=== PATIENT | female | born 1990 | race Caucasian/White ===

== ENCOUNTER 2016-08-03 10:12 | Inpatient (IN) | payer OTHER ==
[~2016-08-03] VITALS: Ht 162.6 cm; Wt 78.8 kg
[~2016-08-03 10:12] MED LIST: ACAM0.05 PO; BACT800T5 PO; TRAZ300T2 PO; WELLTAB39 PO; XANA1TAB6 PO; ZOFR4TAB3 PO
[2016-08-03 10:13] VITALS: BP 131/83; PULSE 125; RESP 14; TEMP 98.3; O2SAT 99
[2016-08-03] MEDS ORDERED: PERP4TAB8 PO (11:42)
[2016-08-03] MEDS ORDERED: QUET1TAB8 PO (11:42)
[2016-08-03] MEDS ORDERED: DIAZ10TA PO (11:42)
[2016-08-03] MEDS ORDERED: QUET5TAB PO (11:42)
[2016-08-03] MEDS ORDERED: ZOLP10TA3 PO (11:42)
[2016-08-03] MEDS ORDERED: DULO1CAP3 PO (11:42)
[2016-08-03] MEDS ORDERED: TRAZ100T4 PO (11:42)
[2016-08-03] MEDS ORDERED: ALPR1TAB3 PO (11:42)
--- NOTE | 2016-08-03 11:53 | PD ---
HPI Chief Complaint: Psychiatric Symptoms Time Seen by Provider: 11:44 Travel History International Travel<30 days: No Contact w/Intl Traveler<30days: No Traveled to known affect area: No History of Present Illness HPI 25-year-old female came to the emergency room with history of major depression and suicidal ideations. Patient came in voluntarily. She has extensive psychiatric disorder history. Patient says she has been feeling like this for past week to 10 days. She took all her Xanax over past one week which were total of 120 pills with an intention to kill herself. She finished those pills 2 days ago. She mentioned this to her psychiatrist who asked her to come to the emergency room says she would require inpatient psych admission. Patient has history of suicidal gestures in the past. Currently she does not look to be in any significant distress. She is awake and answering questions appropriately. Her vital signs were stable. She continues to have active suicidal thoughts. [facility] Past Medical History Narrative Medical List of her past medical history as reviewed from the nursing note. Asthma: Yes Bipolar Disorder: Yes Anxiety: Yes Depression: Yes Cancer: Yes (SKIN CA) High Cholesterol: Yes Diminished Hearing: No Psychiatric: Yes (PANIC ATTACKS) Schizophrenia: Yes ?: Not LMP: IUD Miscarriage: 1 Past Surgical History Ear Surgery: Yes Other Surgery: Yes (TWO RIGHT FOOT PLANTAR FASC , TUNNEL RELEASE AND ANKLE RECONST. ) Social History Alcohol Use: Yes (OCC) Tobacco Use: No Substance Use: Yes (MARIJUANA) Allergies-Medications (Allergen,Severity, Reaction): Coded Allergies: Abilify (Verified Allergy, Severe, Anaphylaxis, 08/03/16) Geodon (Verified Allergy, Severe, Anaphylaxis, 08/03/16) Latuda (Verified Allergy, Severe, Anaphylaxis, 08/03/16) Phenergan (Verified Allergy, Severe, Anaphylaxis, 08/03/16) Comments List of allergies reviewed from the nursing note. Reported Meds & Prescriptions Reported Meds & Active Scripts Active Reported Zolpidem (Zolpidem Tartrate) 10 Mg Tab 10 Mg PO HS PRN Quetiapine (Quetiapine Fumarate) 100 Mg Tab 100 Mg PO HS Quetiapine (Quetiapine Fumarate) 50 Mg Tab 50 Mg PO DAILY Diazepam 10 Mg Tab 10 Mg PO QID Alprazolam 1 Mg Tab 1 Mg PO DAILY Duloxetine DR (Duloxetine HCl) 60 Mg Capdr 60 Mg PO BID Perphenazine 4 Mg Tab 4 Mg PO DAILY Trazodone (Trazodone HCl) 100 Mg Tab 2-3 Tab PO HS Narrative Medication List of her home medications reviewed from the nursing note. Review of Systems Except as stated in HPI: all other systems reviewed are Neg Physical Exam Narrative GENERAL: Awake, alert, no obvious distress SKIN: Warm and dry. HEAD: Atraumatic. Normocephalic. EYES: Pupils equal and round. No scleral icterus. No injection or drainage. ENT: No nasal bleeding or discharge. Mucous membranes pink and moist. NECK: Trachea midline. No JVD. CARDIOVASCULAR: Regular rate and rhythm. No murmur appreciated. RESPIRATORY: No accessory muscle use. Clear to auscultation. Breath sounds equal bilaterally. GASTROINTESTINAL: Abdomen soft, non-tender, nondistended. Hepatic and splenic margins not palpable. MUSCULOSKELETAL: No obvious deformities. No clubbing. No cyanosis. No edema. NEUROLOGICAL: Awake and alert. No obvious cranial nerve deficits. Motor grossly within normal limits. Normal speech. PSYCHIATRIC: Appropriate mood and affect; insight and judgment normal. Data Data Last Documented VS Vital Signs Date Time Temp Pulse Resp B/P Pulse Ox O2 Delivery O2 Flow Rate FiO2 08/03/16 22:00 91 18 136/84 98 Room Air 08/03/16 10:13 98.3 Orders Complete Blood Count With Diff (08/03/16 11:53) Comprehensive Metabolic Panel (08/03/16 11:53) Drug Screen, Random Urine (08/03/16 11:53) Ed Urine Pregnancytest Poc (08/03/16 11:53) Electrocardiogram (08/03/16 11:53) Alcohol (Ethanol) (08/03/16 11:53) Salicylates (Aspirin) (08/03/16 11:53) Tylenol (Acetaminophen) (08/03/16 11:53) Psych Screen (08/03/16 11:53) Diet Regular Basic (08/03/16 Dinner) Admit Order (Ed Use Only) (08/03/16 23:05) Admit To Inpatient Psych (08/03/16 ) Vital Signs (Adult) JENNIFER.Q12H.E (08/03/16 23:05) Activity Oob Ad Monica (08/03/16 23:05) Level Of Observation (Psych) (08/03/16 23:05) Diet Regular Basic (08/04/16 Breakfast) Complete Blood Count With Diff (08/04/16 06:00) Basic Metabolic Panel (Bmp) (08/04/16 06:00) Lipid Profile (08/04/16 06:00) Hemoglobin (Hgb) A1c (08/04/16 06:00) Labs Laboratory Tests Test 08/03/16 14:10 Sodium Level 137 MEQ/L Potassium Level 4.3 MEQ/L Chloride Level 104 MEQ/L Carbon Dioxide Level 25.0 MEQ/L Anion Gap 8 MEQ/L Blood Urea Nitrogen 9 MG/DL Creatinine 0.99 MG/DL Estimat Glomerular Filtration 68 ML/MIN Rate Random Glucose 82 MG/DL Calcium Level 9.3 MG/DL Total Bilirubin 0.7 MG/DL Aspartate Amino Transf 9 U/L (AST/SGOT) Alanine Aminotransferase 19 U/L (ALT/SGPT) Alkaline Phosphatase 53 U/L Total Protein 7.6 GM/DL Albumin 4.3 GM/DL Salicylates Level LESS THAN 1.7 MG/DL Urine Opiates Screen NEG Acetaminophen Level LESS THAN 2.0 MCG/ML Urine Barbiturates Screen NEG Urine Amphetamines Screen NEG Urine Benzodiazepines Screen POS Urine Cocaine Screen NEG Urine Cannabinoids Screen POS Ethyl Alcohol Level LESS THAN 3 MG/DL White Blood Count 12.0 TH/MM3 Red Blood Count 4.78 MIL/MM3 Hemoglobin 15.1 GM/DL Hematocrit 44.1 % Mean Corpuscular Volume 92.3 FL Mean Corpuscular Hemoglobin 31.6 PG Mean Corpuscular Hemoglobin 34.3 % Concent Red Cell Distribution Width 13.7 % Platelet Count 272 TH/MM3 Mean Platelet Volume 7.7 FL Neutrophils (%) (Auto) 74.7 % Lymphocytes (%) (Auto) 16.3 % Monocytes (%) (Auto) 5.8 % Eosinophils (%) (Auto) 2.7 % Basophils (%) (Auto) 0.5 % Neutrophils # (Auto) 9.0 TH/MM3 Lymphocytes # (Auto) 2.0 TH/MM3 Monocytes # (Auto) 0.7 TH/MM3 Eosinophils # (Auto) 0.3 TH/MM3 Basophils # (Auto) 0.1 TH/MM3 CBC Comment DIFF FINAL Differential Comment MDM Medical Decision Making Medical Screen Exam Complete: Yes Emergency Medical Condition: Yes Medical Record Reviewed: Yes Interpretation(s) Twelve-lead EKG was reviewed by me. Normal sinus rhythm, normal axis, nonspecific ST-T wave changes. Heart rate of 79 bpm. Differential Diagnosis Major depression, suicidal ideation Narrative Course 12:22 PM awaiting for the blood test results. Patient will require to be medically cleared in order to be admitted to psych. 12:59 PM since patient came to the ER voluntarily and I strongly feel that she should be admitted for her active suicidal thoughts I have filled a Coronado act paper work. 3:10 PM all the blood test results finally came back. Patient is medically cleared to go to psych. Angela Gomes MD Aug 03, 2016 11:53
[2016-08-03 14:25] VITALS: BP 125/78; PULSE 77; RESP 20; O2SAT 98
[2016-08-03 14:39] LABS: BASOPHIL # 0.1 TH/MM3 (0-0.2); BASOPHIL % 0.5 % (0.0-2.0); EOSINOPHIL # 0.3 TH/MM3 (0-0.4); EOSINOPHIL % 2.7 % (0.0-4.0); HEMATOCRIT 44.1 % (35.0-46.0); HEMO FLAGS DIFF FINAL; LYMPH % 16.3 % (9.0-44.0); MEAN CELL VOLUME 92.3 FL (80.0-100.0); MEAN CORPUSCULAR HEMOGLOBIN 31.6 PG (27.0-34.0); MEAN CORPUSCULAR HGB CONC 34.3 % (32.0-36.0); MONO % 5.8 % (0.0-8.0); NEUT % 74.7 % (16.0-70.0); PLATELET COUNT 272 TH/MM3 (150-450); RED BLOOD COUNT 4.78 MIL/MM3 (4.00-5.30); RED CELL DISTRIBUTION WIDTH 13.7 % (11.6-17.2)
[2016-08-03 14:56] LABS: ALT (GPT) 19 U/L (10-53); AMPHETAMINE, URINE NEG (NEG); ANION GAP 8 MEQ/L (5-15); AST (GOT) 9 U/L (15-37); BARBITURATES, URINE NEG (NEG); BLOOD UREA NITROGEN 9 MG/DL (7-18); CHLORIDE 104 MEQ/L (98-107); COCAINE, URINE NEG (NEG); GLOMERULAR FILTRATION RATE 68 ML/MIN (>89); POTASSIUM 4.3 MEQ/L (3.5-5.1); SODIUM (NA) 137 MEQ/L (136-145)
[2016-08-03 14:59] LABS: ACETAMINOPHEN LESS THAN 2.0 MCG/ML (10.0-30.0); ALKALINE PHOSPHATASE 53 U/L (45-117); TOTAL BILIRUBIN ADULT 0.7 MG/DL (0.2-1.0)
[2016-08-03 19:01] VITALS: BP 127/73; PULSE 88; RESP 18; O2SAT 97
[2016-08-03 22:00] VITALS: BP 136/84; PULSE 91; RESP 18; O2SAT 98
[2016-08-04] MEDS ORDERED: FLUMAZENIL 0.5 MG/5 ML VIAL IV PUSH PRN
[2016-08-04] MEDS ORDERED: LORazepam 2 MG/ML VIAL IV PUSH PRN ×4
[2016-08-04] MEDS ORDERED: LORazepam 2 MG TAB PO PRN
[2016-08-04 00:25] VITALS: BP 123/78; PULSE 79; RESP 18; TEMP 98.3; O2SAT 100
[2016-08-04] MEDS: LORazepam 1 MG TAB PO PRN ×4 (00:25→22:41)
[2016-08-04] MEDS: diphenhydrAMINE HCL 50 MG CAP PO PRN ×2 (00:25→22:41)
[2016-08-04 05:40] VITALS: BP 105/61; PULSE 73; RESP 18; TEMP 97.8; O2SAT 98
[2016-08-04 07:43] LABS: AUTOMATED NEUTROPHIL # 6.4 TH/MM3 (1.8-7.7); BASOPHIL # 0.1 TH/MM3 (0-0.2); BASOPHIL % 0.8 % (0.0-2.0); EOSINOPHIL # 0.4 TH/MM3 (0-0.4); EOSINOPHIL % 4.1 % (0.0-4.0); HEMATOCRIT 43.8 % (35.0-46.0); HEMO FLAGS DIFF FINAL; LYMPH % 24.2 % (9.0-44.0); LYMPHOCYTE # 2.4 TH/MM3 (1.0-4.8); MEAN CORPUSCULAR HEMOGLOBIN 31.8 PG (27.0-34.0); MEAN CORPUSCULAR HGB CONC 34.5 % (32.0-36.0); MONO % 6.5 % (0.0-8.0); NEUT % 64.4 % (16.0-70.0); PLATELET COUNT 260 TH/MM3 (150-450); RED BLOOD COUNT 4.76 MIL/MM3 (4.00-5.30); RED CELL DISTRIBUTION WIDTH 13.8 % (11.6-17.2)
[2016-08-04 08:05] LABS: ANION GAP 8 MEQ/L (5-15); BICARBONATE 27.7 MEQ/L (21.0-32.0); BLOOD UREA NITROGEN 10 MG/DL (7-18); CHLORIDE 103 MEQ/L (98-107); GLOMERULAR FILTRATION RATE 62 ML/MIN (>89); HDL CHOLESTEROL 55.4 MG/DL (40.0-60.0); LDL CHOLESTEROL 152 MG/DL (0-99); POTASSIUM 4.3 MEQ/L (3.5-5.1); SODIUM (NA) 139 MEQ/L (136-145)
[2016-08-04] MEDS: NICOTINE 21 MG/24 HR PATCH T-DERMAL SCH (08:42)
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
[2016-08-04] MEDS ORDERED: ACETAMINOPHEN 325 MG TAB PO PRN ×3 (11:30→23:45)
[2016-08-04] MEDS ORDERED: diphenhydrAMINE HCL 50 MG/ML VIAL - HS PRN IM (16:30)
[2016-08-04] MEDS ORDERED: MAGNESIUM HYDROXIDE SUSP 30 ML CUP PO PRN (16:30)
[2016-08-04] MEDS ORDERED: diphenhydrAMINE HCL 50 MG CAP - HS PRN PO (16:30)
[2016-08-04] MEDS ORDERED: ALUMINUM/MAGNESIUM/SIMETH 30 ML CUP PO PRN (16:30)
[2016-08-04] MEDS ORDERED: diphenhydrAMINE HCL 50 MG/ML VIAL IM PRN (16:30)
[2016-08-04] MEDS ORDERED: hydrOXYzine HCL 50 MG TAB PO PRN (16:30)
[2016-08-04 17:24] LABS: HEMOGLOBIN A1b 0.9 %; HEMOGLOBIN F 0.8 %; HEMOGLOBIN LA1C 1.8 %; HEMOGLOBIN P3 3.2 %
[2016-08-04 18:00] VITALS: BP 118/72; PULSE 110; RESP 17; TEMP 97.9; O2SAT 99
[2016-08-04] MEDS ORDERED: REMOVE OLD NICOTINE PATCH T-DERMAL SCH (21:00)
--- NOTE | 2016-08-04 22:50 | EKG ---
Date Performed: 08/03/2016 Time Performed: 14:19:48 PTAGE: 25 years EKG: Sinus rhythm WITH SINUS ARRHYTHMIA NORMAL ECG NO PREVIOUS TRACING DOCTOR: Israel Sun Interpretating Date/Time 08/04/2016 22:48:34
[2016-08-05 05:25] VITALS: BP 133/69; PULSE 90; RESP 16; TEMP 97.9
[2016-08-05] MEDS: NICOTINE 21 MG/24 HR PATCH T-DERMAL SCH (09:20)
--- NOTE | 2016-08-05 10:19 | HHI.DS ---
Psychiatry Discharge Summary Inpatient Psychiatric care?: Yes Advance Directive: No Reason Not Provided: not interested Mental Health AdvanceDirective: No Health Care Proxy: No Admission Admission Date Aug 03, 2016 at 23:08 Admission Diagnosis: (1) Bipolar affective disorder, depressed ICD Code: F31.30 (2) History of substance abuse ICD Code: Z87.898 GAF Score: 45 Brief History This is a 25-year-old white female who was admitted under the Coron[place] act initiated by a physician. Patient admitted to abusing Agustin and alcohol and pot. She also reported that she has not been taking care of herself she is looking for a job. She claimed that she has been diagnosed with bipolar affective disorder and seeing a psychiatrist as an outpatient was prescribing the medication and she is also diagnosed as having borderline personality disorder and PTSD. Yesterday she came because she ran out of the medication she took 120 pills in 2 days and her physician was afraid that she might going to some depressed withdrawal symptoms and asked her to go to the hospital. Patient claimed that she has some sweating nausea vomiting and upset stomach but denied any auditory or visual hallucinations. Patient denies any suicidal ideation intentions or plan but reportedly she to all her Xanax or the past one week which would total of 120 pills with an intent to kill herself along with alcohol she finished those pills few days ago before she came to the hospital she had a history of suicide attempt in the past. Patient claimed that she has been having problem with substance abuse ever since she was 18 hasn't been to any rehabilitation. Her fianc is field cane scaler helper and an alcoholic. Patient is willing to cooperate Tobacco Use In Past 30 Days: No Tobacco Past 30 Days Alcohol Use: 4 or More Times Per Week Hospital Course Patient was started on supportive treatment. Patient was reluctant to be in the hospital as she believes that she was not suicidal and she does not have been Coronado acted. She does realize that she has been abusing medication and willing to work as an outpatient with her physician. Denied any suicidal ideation intentions or plan no behavior or management problem reported. She was observed. She did participated in some of the therapeutic activity on the floor. Willing to follow-up as an outpatient and wanting to be discharged and she did not meet the Coronado act criteria so we'll lift the Coronado act and discharge the patient to be followed up as an outpatient Results Blood Pressure 133 / 69 Vital Signs Date Time Temp Pulse Resp B/P Pulse Ox O2 Delivery O2 Flow Rate FiO2 08/05/16 05:25 97.9 90 16 133/69 08/04/16 18:00 99 08/03/16 22:00 Room Air Laboratory Tests Test 08/03/16 08/04/16 14:10 07:20 Estimat Glomerular Filtration 68 ML/MIN (>89) 62 ML/MIN (>89) Rate Aspartate Amino Transf 9 U/L (15-37) (AST/SGOT) Salicylates Level LESS THAN 1.7 MG/DL (2.8-20.0) Acetaminophen Level LESS THAN 2.0 MCG/ML (10.0-30.0) Urine Benzodiazepines Screen POS (NEG) Urine Cannabinoids Screen POS (NEG) White Blood Count 12.0 TH/MM3 (4.0-11.0) Neutrophils (%) (Auto) 74.7 % (16.0-70.0) Neutrophils # (Auto) 9.0 TH/MM3 (1.8-7.7) Eosinophils (%) (Auto) 4.1 % (0.0-4.0) Creatinine 1.07 MG/DL (0.50-1.00) Triglycerides Level 167 MG/DL (42-150) Cholesterol Level 241 MG/DL (120-200) LDL Cholesterol 152 MG/DL (0-99) Laboratory Results Test 08/04/16 07:20 Hemoglobin A1c 4.7 % (4.3-6.0) Triglycerides Level 167 MG/DL (42-150) Cholesterol Level 241 MG/DL (120-200) LDL Cholesterol 152 MG/DL (0-99) HDL Cholesterol 55.4 MG/DL (40.0-60.0) Summary of Major Lab Results Nothing significant Summary of Procedures None Imaging None Pending results at discharge: No Medications # of Antipsychotic meds at D/C: 0 Appropriate >1 Antipsych meds?: 2 Approp Antipsych med options 1 - Minimum of three failed multiple trials of monotherapy. Discharge Discharge Date: Aug 05, 2016 Discharge Diagnosis: (1) Bipolar affective disorder, depressed Diagnosis: Principal ICD Code: F31.30 (2) History of substance abuse Diagnosis: Principal ICD Code: Z87.898 Mental Status Exam at Disch Patient was alert guarded 3 cooperative casually dressed her speech was clear spontaneous without any evidence of loose associations or flights of ideas or pressure speech her mood was described as feeling fine and was willing to follow -up with her physician and take the medication. Patient denied any suicidal ideation intentions or plan. Denied any auditory or visual hallucinations. Feels hopeful about the future and get some help Pt Condition on Discharge: Stable Discharge Disposition: Discharge Home Discharge Instructions Diet Instructions: As Tolerated, No Restrictions Activities you can perform: Regular-No Restrictions Scheduled Appointment: Private Psychiatrist Discharge Time <= 30 minutes Discharge/Advance Care Plan Health Problems: (1) Bipolar affective disorder, depressed (2) History of substance abuse Goals to promote your health * To prevent worsening of your condition and complications * To maintain your health at the optimal level Directions to meet your goals Take your medications as prescribed Follow your dietary instruction Follow activity as directed Keep your appointments as scheduled Take your immunizations and boosters as scheduled If your symptoms worsen call your PCP, if no PCP go to Urgent Care Center or Emergency Room For 17/01 questions related to your inpatient stay or results of tests pending at discharge, please contact Dr. Frank Prado at Smoking is Dangerous to Your Health. Avoid second hand smoking Problem Qualifiers (1) Bipolar affective disorder, depressed: Qualified Code: F31.32 - Bipolar affective disorder, currently depressed, moderate Frank Prado MD Aug 05, 2016 10:19
== END 2016-08-05 15:40 | disposition home or self-care (01) | DRG 885 ==
LOC: NEPB 10:12 → NEDA 23:08 → H260 23:44
PROVIDERS: ADMIT Psychiatry & Neurology Psychiatry; ATTEND Psychiatry & Neurology Psychiatry
DX: F31.30 Bipolar disorder, current episode depressed, mild or moderate severity, unspecified (principal); F60.3 Borderline personality disorder; F43.10 Post-traumatic stress disorder, unspecified; J45.909 Unspecified asthma, uncomplicated; Z81.1 Family history of alcohol abuse and dependence; Z91.5 Personal history of self-harm; Z88.8 Allergy status to other drugs, medicaments and biological substances; Z87.898 Personal history of other specified conditions
CPT/HCPCS: 80048; 80053; 80061; 80307; 80320; 80329; 83036; 84703; 85025; 93005; G0480; Q0163

== ENCOUNTER 2016-10-01 18:57 | Emergency (ER) | payer OTHER ==
[~2016-10-01] VITALS: Ht 165.1 cm; Wt 75.0 kg
[~2016-10-01 18:57] MED LIST changes: -ACAM0.05 PO; +ALPR1TAB3 PO; -BACT800T5 PO; +DIAZ10TA PO; +DULO1CAP3 PO; +PERP4TAB8 PO; +QUET1TAB8 PO; +QUET5TAB PO; +TRAZ100T4 PO; -TRAZ300T2 PO; -WELLTAB39 PO; -XANA1TAB6 PO; -ZOFR4TAB3 PO; +ZOLP10TA3 PO
[2016-10-01 19:10] VITALS: BP 129/79; PULSE 92; RESP 16; TEMP 98.5; TEMP 99.3; O2SAT 97
[2016-10-01] MEDS ORDERED: SODIUM CHLORIDE 0.9% FLUSH 10 ML FLUSH IVF PRN (19:15)
[2016-10-01 19:25] VITALS: RESP 16; O2SAT 98
--- NOTE | 2016-10-01 19:30 | PD ---
HPI Chief Complaint: Chest Pain Time Seen by Provider: 19:30 Travel History International Travel<30 days: No Contact w/Intl Traveler<30days: No Traveled to known affect area: No History of Present Illness HPI 25-year-old female presents to the emergency department via EMS with complaint of chest pain and shortness of breath that started last night. She was at work today and started experiencing the chest pain or shortness of breath and heart palpitations. Became lightheaded and dizzy and almost fainted. She was seen at [place] urgent care and was sent here for evaluation because of tachycardia on EKG. Reports chest pain as left-sided and across the top of her chest. Feels like a pressure like something is sitting on her chest. Shortness of breath is worse with activity. Chest pain is reproducible with deep breathing and movement. Denies heavy lifting or injury. Denies radiation of chest pain. Denies history of DVT or PE. Denies hemoptysis, recent travel, surgery, trauma. Was given Zofran in the ambulance for nausea. Denies vomiting. Reports recent illness of flulike symptoms but has felt better over the past 2 days. Has history of anxiety and takes Ativan as needed; last taken one week ago. She was recently treated with tramadol for the past 3 weeks for a wrist injury and stopped taking it 2 days ago and was told that she is possibly going through withdrawals. Patient has an IUD and her last normal menstrual period was 2 years ago. History of childhood asthma and bipolar disorder. Primary care provider is Dr. Etienne. Allergies to Abilify, Geodon , Latuda, Phenergan. No other modifying factors or associated signs and symptoms. PFSH Past Medical History ADD: Yes (OCD) Asthma: Yes Bipolar Disorder: Yes Anxiety: Yes Depression: Yes Cancer: Yes (SKIN CA) High Cholesterol: Yes COPD: No Diminished Hearing: No Headaches: No Psychiatric: Yes (Hx of Bipolar DO, PTSD, OCD per pt) Respiratory: Yes Migraines: Yes Schizophrenia: Yes Tetanus Vaccination: < 5 Years Influenza Vaccination: Yes ?: Unknown LMP: UNK-IUD Miscarriage: 1 Past Surgical History Abdominal Surgery: No Cardiac Surgery: No Ear Surgery: Yes Endocrine Surgery: No Eye Surgery: No Genitourinary Surgery: No Gynecologic Surgery: No Oral Surgery: No Thoracic Surgery: No Other Surgery: Yes (TWO RIGHT FOOT PLANTAR FASC , TUNNEL RELEASE AND ANKLE RECONST. ) Social History Alcohol Use: Yes (OCC) Tobacco Use: No Substance Use: No Allergies-Medications (Allergen,Severity, Reaction): Coded Allergies: Abilify (Verified Allergy, Severe, Anaphylaxis, 10/01/16) Geodon (Verified Allergy, Severe, Anaphylaxis, 10/01/16) Latuda (Verified Allergy, Severe, Anaphylaxis, 10/01/16) Phenergan (Verified Allergy, Severe, Anaphylaxis, 10/01/16) Reported Meds & Prescriptions Reported Meds & Active Scripts Active Ibuprofen 800 Mg Tab 800 Mg PO Q6HR PRN Reported Ativan (Lorazepam) 1 Mg Tab 1 Mg PO DAILY PRN Quetiapine (Quetiapine Fumarate) 300 Mg Tab 300 Mg PO HS Duloxetine DR (Duloxetine HCl) 60 Mg Capdr 120 Mg PO AC BREAKFAST Trazodone (Trazodone HCl) 100 Mg Tab 2-3 Tab PO HS Review of Systems Except as stated in HPI: all other systems reviewed are Neg Physical Exam Narrative GENERAL: Well-nourished, well-developed female patient, in no acute distress SKIN: Warm and dry. HEAD: Atraumatic. Normocephalic. EYES: Pupils equal and round. No scleral icterus. No injection or drainage. ENT: Mucosa pink and moist. NECK: Trachea midline. CHEST: Reproducible left and bilateral upper chest wall tenderness; no crepitance or deformity. No retractions or use of accessory muscles. CARDIOVASCULAR: Regular rate and rhythm. No murmur appreciated. RESPIRATORY: No accessory muscle use. Clear to auscultation. Breath sounds equal bilaterally. GASTROINTESTINAL: Abdomen soft, non-tender, nondistended. Hepatic and splenic margins not palpable. Bowel sounds are active 4 quadrants. MUSCULOSKELETAL: No obvious deformities. No clubbing. No cyanosis. No edema. NEUROLOGICAL: Awake and alert. Oriented 3. No obvious cranial nerve deficits. Motor grossly within normal limits. Normal speech. Moves all extremities. 5/5 strength to all extremities. PSYCHIATRIC: Appropriate mood and affect; insight and judgment normal. Data Data Last Documented VS Vital Signs Date Time Temp Pulse Resp B/P Pulse Ox O2 Delivery O2 Flow Rate FiO2 10/01/16 21:31 98.7 87 16 126/74 99 10/01/16 20:57 Room Air Orders Electrocardiogram (10/01/16 19:14) Basic Metabolic Panel (Bmp) (10/01/16 19:14) Ckmb (Isoenzyme) Profile (10/01/16 19:14) Complete Blood Count With Diff (10/01/16 19:14) D-Dimer (10/01/16 19:14) Magnesium (Mg) (10/01/16 19:14) Prothrombin Time / Inr (Pt) (10/01/16 19:14) Act Partial Throm Time (Ptt) (10/01/16 19:14) Troponin I (10/01/16 19:14) Chest, Single Ap (10/01/16 19:14) Ecg Monitoring (10/01/16 19:14) Iv Access Insert/Monitor (10/01/16 19:14) Oximetry (10/01/16 19:14) Sodium Chloride 0.9% Flush (Ns Flush) (10/01/16 19:15) Beta Hcg (Quant/Titer) (10/01/16 19:21) Influenzae A/B Antigen (10/01/16 19:29) Sodium Chlor 0.9% 1000 Ml Inj (Ns 1000 M (10/01/16 19:45) Ketorolac Inj (Toradol Inj) (10/01/16 20:00) Labs Laboratory Tests Test 10/01/16 19:40 White Blood Count 13.3 TH/MM3 Red Blood Count 4.12 MIL/MM3 Hemoglobin 12.7 GM/DL Hematocrit 36.2 % Mean Corpuscular Volume 87.9 FL Mean Corpuscular Hemoglobin 30.8 PG Mean Corpuscular Hemoglobin 35.0 % Concent Red Cell Distribution Width 13.3 % Platelet Count 322 TH/MM3 Mean Platelet Volume 8.3 FL Neutrophils (%) (Auto) % Lymphocytes (%) (Auto) % Monocytes (%) (Auto) % Eosinophils (%) (Auto) % Basophils (%) (Auto) % Neutrophils # (Auto) TH/MM3 Lymphocytes # (Auto) TH/MM3 Monocytes # (Auto) TH/MM3 Eosinophils # (Auto) TH/MM3 Basophils # (Auto) TH/MM3 CBC Comment AUTO DIFF Differential Total Cells 100 Counted Neutrophils % (Manual) 79 % Lymphocytes % 16 % Monocytes % 5 % Neutrophils # (Manual) 10.5 TH/MM3 Differential Comment FINAL DIFF MANUAL Platelet Estimate NORMAL Platelet Morphology Comment NORMAL Red Cell Morphology Comment NORMAL Prothrombin Time 12.0 SEC Prothromb Time International 1.1 RATIO Ratio Activated Partial 25.9 SEC Thromboplast Time D-Dimer Quantitative (PE/DVT) 0.20 MG/L FEU Sodium Level 141 MEQ/L Potassium Level 3.7 MEQ/L Chloride Level 107 MEQ/L Carbon Dioxide Level 22.3 MEQ/L Anion Gap 12 MEQ/L Blood Urea Nitrogen 7 MG/DL Creatinine 1.06 MG/DL Estimat Glomerular Filtration 63 ML/MIN Rate Random Glucose 74 MG/DL Calcium Level 9.3 MG/DL Magnesium Level 2.1 MG/DL Total Creatine Kinase 72 U/L Troponin I LESS THAN 0.02 NG/ML Human Chorionic Gonadotropin, LESS THAN 1 Quant MIU/ML MDM Medical Decision Making Medical Screen Exam Complete: Yes Emergency Medical Condition: Yes Medical Record Reviewed: Yes Differential Diagnosis Chest wall pain, musculoskeletal pain, costochondritis, PE, SD, ACS Narrative Course 25-year-old female with chest pain and shortness of breath. She arrived via EMS from [place] urgent [facility] after an EKG confirmed tachycardia. She has history of anxiety. Stopped taking tramadol 2 days ago and was told she was could be going through withdrawals. Patient placed on cardiopulmonary monitor. Labs, cardiac enzymes, beta hCG, coags ordered. Chest x-ray and EKG ordered. Influenza ordered. Toradol ordered. 1934: EKG was sinus tachycardia; without ST elevation or depression. 2022: Influenza negative. Slight leukocytosis of 13.3 otherwise CBC is unremarkable. BMP unremarkable. Troponin less than 0.2. D-dimer 0.20. 2099: Chest x-ray with no acute findings. Discussed results and findings with the patient. I discussed the patient's Risk of MACE of 0.9-1.7%. Patient feels comfortable going home. Ibuprofen prescribed for home. Instructed patient to follow up with primary care provider. Patient verbalizes understanding and agreement with treatment plan. Patient is medically cleared and stable for discharge. Discussed reasons to return to the emergency department. Patient agrees with treatment plan. The patients vital signs are stable and the patient is stable for outpatient follow-up and treatment. Patient discharged home, stable and in no acute distress. Diagnosis Primary Impression: Chest wall pain Referrals: Primary Care Physician Patient Instructions: Chest Pain (ED), Chest Wall Pain (ED), General Instructions Departure Forms: Tests/Procedures, Work Release Enter return to work date: Oct 02, 2016 Additional Instructions: Ibuprofen or Tylenol as directed and as needed to reduce pain Heating pad and/or ice to affected area to reduce pain Avoid aggravating activities; increase activity as tolerated Gentle stretching to the affected muscle may be helpful Follow-up with a primary care provider Return to the emergency department immediately with worsening of symptoms Med/Other Pt SpecificInfo: Prescription(s) given Scripts Ibuprofen 800 Mg [id number] Mg PO Q6HR PRN (PAIN) #30 TAB Ref 0 Prov:Kristy De La O 10/01/16 Disposition: 01 DISCHARGE HOME Condition: Stable Kristy De La O Oct 01, 2016 19:30
[2016-10-01] MEDS ORDERED: DULO1CAP3 PO (19:31)
[2016-10-01] MEDS ORDERED: LORA-474 PO (19:31)
[2016-10-01] MEDS ORDERED: QUET1TAB10 PO (19:31)
[2016-10-01] MEDS ORDERED: SODIUM CHLOR 0.9% 1000 ML INJ 1,000 ML IV ONE (19:45)
--- NOTE | 2016-10-01 19:56 | RADRPT ---
EXAM DATE/TIME: 10/01/2016 19:29 [facility] COMPARISON: No previous studies available for comparison. INDICATIONS : Left sided chest pain and syncope. MEDICAL HISTORY : None. SURGICAL HISTORY : None. ENCOUNTER: Initial ACUITY: 1 day PAIN SCORE: 8/10 LOCATION: Left lower chest FINDINGS: A single view of the chest demonstrates the lungs to be symmetrically aerated without evidence of mas s, infiltrate or effusion. The cardiomediastinal contours are unremarkable. Osseous structures are intact. CONCLUSION: Normal examination. Oscar Manning MD on October 01, 2016 at 19:54 Board Certified Radiologist. This report was verified electronically.
[2016-10-01] MEDS ORDERED: KETOROLAC TROMETHAMINE 30 MG/ML (IVP) VIAL IV PUSH ONE (20:00)
[2016-10-01 20:09] LABS: HEMATOCRIT 36.2 % (35.0-46.0); MEAN CELL VOLUME 87.9 FL (80.0-100.0); MEAN CORPUSCULAR HEMOGLOBIN 30.8 PG (27.0-34.0); PLATELET COUNT 322 TH/MM3 (150-450); RED BLOOD COUNT 4.12 MIL/MM3 (4.00-5.30); RED CELL DISTRIBUTION WIDTH 13.3 % (11.6-17.2); WHITE BLOOD COUNT 13.3 TH/MM3 (4.0-11.0)
[2016-10-01 20:12] LABS: HEMO FLAGS AUTO DIFF
[2016-10-01 20:15] LABS: APTT (PATIENT) 25.9 SEC (24.3-30.1); INTERNATIONAL NORMALIZED RATIO 1.1 RATIO
[2016-10-01 20:20] LABS: ANION GAP 12 MEQ/L (5-15); BICARBONATE 22.3 MEQ/L (21.0-32.0); BLOOD UREA NITROGEN 7 MG/DL (7-18); CHLORIDE 107 MEQ/L (98-107); GLOMERULAR FILTRATION RATE 63 ML/MIN (>89); MAGNESIUM 2.1 MG/DL (1.5-2.5); POTASSIUM 3.7 MEQ/L (3.5-5.1); SODIUM (NA) 141 MEQ/L (136-145)
[2016-10-01 20:27] LABS: BETA HCG QUANT LESS THAN 1 MIU/ML (0-5)
[2016-10-01 20:37] LABS: NEUTROPHIL # MANUAL DIFF 10.5 TH/MM3 (1.8-7.7); POLYS (SEG NEUTROPHILS) 79 % (16-70); WBC DIFF SAMPLE 100
[2016-10-01 20:38] LABS: PLATELET ESTIMATE SMEAR NORMAL (NORMAL); PLATELET MORPHOLOGY NORMAL (NORMAL); SCAN/DIFF FINAL DIFF MANUAL
[2016-10-01 20:39] LABS: CREATINE KINASE 72 U/L (26-192)
[2016-10-01 20:57] VITALS: BP 124/79; PULSE 81; RESP 16; O2SAT 99
[2016-10-01] MEDS ORDERED: IBUP800T23 PO (21:05)
[2016-10-01 21:31] VITALS: BP 126/74; TEMP 98.7
--- NOTE | 2016-10-02 14:31 | EKG ---
Date Performed: 10/01/2016 Time Performed: 19:33:15 PTAGE: 25 years EKG: SINUS TACHYCARDIA Compared to prior tracing no significant change ABNORMAL RHYTHM ECG PREVIOUS TRACING : 08/03/2016 14.19 DOCTOR: Verito Funes Interpretating Date/Time 10/02/2016 14:30:58
== END 2016-10-01 21:32 | disposition home or self-care (01) ==
LOC: NEPD 18:57
DX: R07.89 Other chest pain (principal); R06.02 Shortness of breath; R00.2 Palpitations; R42 Dizziness and giddiness; R00.0 Tachycardia, unspecified; R11.0 Nausea; E78.00 Pure hypercholesterolemia, unspecified; Z85.828 Personal history of other malignant neoplasm of skin; Z87.09 Personal history of other diseases of the respiratory system; Z86.69 Personal history of other diseases of the nervous system and sense organs; Z86.59 Personal history of other mental and behavioral disorders
CPT/HCPCS: 71010; 80048; 82550; 83735; 84484; 84702; 85007; 85027; 85379; 85610; 85730; 87804; 93005; 96361; 96374; 99285; J1885; J7030

== ENCOUNTER 2017-08-14 23:23 | Inpatient (IN) | payer OTHER ==
[~2017-08-14] VITALS: Ht 167.6 cm; Wt 75.0 kg
[~2017-08-14 23:23] MED LIST changes: -ALPR1TAB3 PO; +AMBI10TA PO; +BUSP15TA PO; -DIAZ10TA PO; -DULO1CAP3 PO; +LORA0.5T PO; +MELO7.5T27 PO; -PERP4TAB8 PO; -QUET1TAB8 PO; -QUET5TAB PO; -TRAZ100T4 PO; -ZOLP10TA3 PO
[2017-08-14 23:25] VITALS: BP 110/80; PULSE 86; RESP 16; TEMP 98.1; O2SAT 98
[2017-08-14] MEDS ORDERED: SODIUM CHLOR 0.9% 1000 ML INJ 1,000 ML IV ONE (23:31)
[2017-08-14 23:34] VITALS: RESP 16; O2SAT 98
--- NOTE | 2017-08-14 23:44 | PD ---
HPI . Overdose Chief Complaint: OD/ Ingestion Time Seen by Provider: 23:28 Travel History International Travel<30 days: No Contact w/Intl Traveler<30days: No Traveled to known affect area: No History of Present Illness HPI This patient is brought to us by [facility] with chief complaint of an intentional overdose. The overdose reportedly occurred approximately 11 PM. She reportedly took 20 5 mg clonidine tablets (? 0.5 mg or clonazepam) and 4 10 mg Ambien tablets in a suicidal attempt. She has also cut her right wrist. EMS was called by her fianc. She reportedly has a history of a previous suicide attempt. The patient is unable to give me any further history as to why she might have done this tonight. PFSH Past Medical History ADD: Yes (OCD) Asthma: Yes Bipolar Disorder: Yes Anxiety: Yes Depression: Yes Cancer: Yes (SKIN CA) High Cholesterol: Yes COPD: No Diminished Hearing: No Headaches: No Psychiatric: Yes (Hx of Bipolar DO, PTSD, OCD per pt) Respiratory: Yes Migraines: Yes Schizophrenia: Yes Tetanus Vaccination: Unknown Influenza Vaccination: No ?: Not LMP: LAST WEEK Miscarriage: 1 Past Surgical History Abdominal Surgery: No Cardiac Surgery: No Ear Surgery: Yes Endocrine Surgery: No Eye Surgery: No Genitourinary Surgery: No Gynecologic Surgery: No Oral Surgery: No Thoracic Surgery: No Other Surgery: Yes (TWO RIGHT FOOT PLANTAR FASC , TUNNEL RELEASE AND ANKLE RECONST. ) Social History Alcohol Use: Yes (OCC) Tobacco Use: No Substance Use: No Allergies-Medications (Allergen,Severity, Reaction): Coded Allergies: aripiprazole (Unverified Allergy, Severe, Anaphylaxis, 08/14/17) lurasidone (Unverified Allergy, Severe, Anaphylaxis, 08/14/17) promethazine (Unverified Allergy, Severe, Anaphylaxis, 08/14/17) ziprasidone (Unverified Allergy, Severe, Anaphylaxis, 08/14/17) Reported Meds & Prescriptions Reported Meds & Active Scripts Active Meloxicam 7.5 Mg Tab 7.5 Mg PO DAILY Lorazepam 0.5 Mg Tab 0.5 Mg PO Q6H PRN Ambien (Zolpidem Tartrate) 10 Mg Tab 10 Mg PO HS PRN Buspirone (Buspirone HCl) 15 Mg Tab 15 Mg PO TID Review of Systems Except as stated in HPI: all other systems reviewed are Neg HENT: No: Headaches Cardiovascular: No: Chest Pain or Discomfort Respiratory: No: Shortness of Breath Gastrointestinal: No: Nausea, Vomiting, Diarrhea, Abdominal Pain Physical Exam Narrative GENERAL: Patient is awake and alert. She has slurred speech. SKIN: warm/dry. Superficial abrasions on the right wrist. HEAD: Normocephalic. Atraumatic. EYES: Pupils equal and round. No scleral icterus. No injection or drainage. ENT: No nasal bleeding or discharge. Mucous membranes pink and moist. NECK: Trachea midline. Full range of motion without pain.. CARDIOVASCULAR: Regular rate and rhythm. Heart sounds normal. RESPIRATORY: No accessory muscle use. Clear to auscultation. Breath sounds equal bilaterally. GASTROINTESTINAL: Abdomen soft. Nontender. Bowel sounds present. Nondistended. MUSCULOSKELETAL: No obvious deformities. NEUROLOGICAL: Awake and alert. No obvious cranial nerve deficits. Motor grossly within normal limits. Normal speech. PSYCHIATRIC: Suicidal ideation. Alcohol intoxication. Data Data Last Documented VS Vital Signs Date Time Temp Pulse Resp B/P (MAP) Pulse Ox O2 Delivery O2 Flow Rate FiO2 08/14/17 23:34 16 98 Nasal Cannula 2.00 08/14/17 23:29 80 08/14/17 23:25 98.1 110/80 (90) Orders Orders Beta Hcg (Quant/Titer) (08/14/17 23:31) Complete Blood Count With Diff (08/14/17 23:31) Comprehensive Metabolic Panel (08/14/17 23:31) Iv Access Insert/Monitor (08/14/17 23:31) Cath For Specimen (08/14/17 23:31) Ecg Monitoring (08/14/17 23:31) Oximetry (08/14/17 23:31) Psych Screen (08/14/17 23:31) Sodium Chloride 0.9% Flush (Ns Flush) (08/14/17 23:45) Sodium Chlor 0.9% 1000 Ml Inj (Ns 1000 M (08/14/17 23:31) Call Poison Control (08/14/17 23:31) Drug Screen, Random Urine (08/14/17 23:31) Alcohol (Ethanol) (08/14/17 23:31) Salicylates (Aspirin) (08/14/17 23:31) Tylenol (Acetaminophen) (08/14/17 23:31) Tylenol (Acetaminophen) (08/15/17 02:36) Labs Laboratory Tests Test 08/14/17 23:40 08/15/17 02:45 White Blood Count 8.7 TH/MM3 Red Blood Count 4.19 MIL/MM3 Hemoglobin 13.0 GM/DL Hematocrit 37.6 % Mean Corpuscular Volume 89.7 FL Mean Corpuscular Hemoglobin 31.1 PG Mean Corpuscular Hemoglobin Concent 34.7 % Red Cell Distribution Width 14.1 % Platelet Count 209 TH/MM3 Mean Platelet Volume 8.1 FL Neutrophils (%) (Auto) 52.8 % Lymphocytes (%) (Auto) 32.6 % Monocytes (%) (Auto) 6.6 % Eosinophils (%) (Auto) 7.1 % Basophils (%) (Auto) 0.9 % Neutrophils # (Auto) 4.6 TH/MM3 Lymphocytes # (Auto) 2.8 TH/MM3 Monocytes # (Auto) 0.6 TH/MM3 Eosinophils # (Auto) 0.6 TH/MM3 Basophils # (Auto) 0.1 TH/MM3 CBC Comment DIFF FINAL Differential Comment Blood Urea Nitrogen 9 MG/DL Creatinine 0.78 MG/DL Random Glucose 81 MG/DL Total Protein 6.3 GM/DL Albumin 3.5 GM/DL Calcium Level 7.8 MG/DL Alkaline Phosphatase 36 U/L Aspartate Amino Transf (AST/SGOT) 29 U/L Alanine Aminotransferase (ALT/SGPT) 17 U/L Total Bilirubin 0.2 MG/DL Sodium Level 140 MEQ/L Potassium Level 4.2 MEQ/L Chloride Level 109 MEQ/L Carbon Dioxide Level 22.5 MEQ/L Anion Gap 9 MEQ/L Estimat Glomerular Filtration Rate 89 ML/MIN Human Chorionic Gonadotropin, Quant LESS THAN 1 MIU/ML Salicylates Level LESS THAN 1.7 MG/DL Urine Opiates Screen NEG Acetaminophen Level LESS THAN 2.0 MCG/ML LESS THAN 2.0 MCG/ML Urine Barbiturates Screen NEG Urine Amphetamines Screen NEG Urine Benzodiazepines Screen NEG Urine Cocaine Screen NEG Urine Cannabinoids Screen NEG Ethyl Alcohol Level 199 MG/DL MDM Medical Decision Making Medical Screen Exam Complete: Yes Emergency Medical Condition: Yes Differential Diagnosis Differential diagnosis of overdose includes but is not limited to accidental ingestion, intentional ingestion, malingering, poisoning Narrative Course Patient presents to us as a reported overdose. She states that she did it to try to kill herself. She reportedly took clonidine and Ambien. Poison control was contacted for any specific instructions. They did not really have anything to add regarding management of this ingestion. CBC & BMP Diagram 08/14/17 23:40 Total Protein 6.3 L, Albumin 3.5, Calcium Level 7.8 L, Alkaline Phosphatase 36 L , Aspartate Amino Transf (AST/SGOT) 29, Alanine Aminotransferase (ALT/SGPT) 17, Total Bilirubin 0.2 Tox screen is positive only for alcohol. Her alcohol level is 199. The patient has been observed closely for her blood pressure. Her systolic blood pressure has remained stable at 100-110. Repeat Tylenol level was still negative. She is now medically clear for psychiatric evaluation. Diagnosis Primary Impression: Suicidal ideation Additional Impression: Alcohol intoxication Qualified Codes: F10.920 - Alcohol use, unspecified with intoxication, uncomplicated Condition: Stable Conchita Kern MD Aug 14, 2017 23:44
[2017-08-14] MEDS ORDERED: SODIUM CHLORIDE 0.9% FLUSH 10 ML FLUSH IVF PRN (23:45)
[2017-08-14 23:50] LABS: AUTOMATED NEUTROPHIL # 4.6 TH/MM3 (1.8-7.7); BASOPHIL # 0.1 TH/MM3 (0-0.2); BASOPHIL % 0.9 % (0.0-2.0); EOSINOPHIL # 0.6 TH/MM3 (0-0.4); EOSINOPHIL % 7.1 % (0.0-4.0); HEMATOCRIT 37.6 % (35.0-46.0); LYMPH % 32.6 % (9.0-44.0); LYMPHOCYTE # 2.8 TH/MM3 (1.0-4.8); MEAN CELL VOLUME 89.7 FL (80.0-100.0); MEAN CORPUSCULAR HEMOGLOBIN 31.1 PG (27.0-34.0); MEAN CORPUSCULAR HGB CONC 34.7 % (32.0-36.0); MEAN PLATELET VOLUME 8.1 FL (7.0-11.0); MONO % 6.6 % (0.0-8.0); MONOCYTE # 0.6 TH/MM3 (0-0.9); NEUT % 52.8 % (16.0-70.0); PLATELET COUNT 209 TH/MM3 (150-450); RED BLOOD COUNT 4.19 MIL/MM3 (4.00-5.30); RED CELL DISTRIBUTION WIDTH 14.1 % (11.6-17.2); WHITE BLOOD COUNT 8.7 TH/MM3 (4.0-11.0)
[2017-08-15 00:09] LABS: ALBUMIN 3.5 GM/DL (3.4-5.0); ALT (GPT) 17 U/L (10-53); AST (GOT) 29 U/L (15-37); BICARBONATE 22.5 MEQ/L (21.0-32.0); BLOOD UREA NITROGEN 9 MG/DL (7-18); CALCIUM 7.8 MG/DL (8.5-10.1); CHLORIDE 109 MEQ/L (98-107); CREATININE 0.78 MG/DL (0.50-1.00); GLOMERULAR FILTRATION RATE 89 ML/MIN (>89); GLUCOSE,RANDOM 81 MG/DL (74-106); SODIUM (NA) 140 MEQ/L (136-145)
[2017-08-15 00:11] LABS: ACETAMINOPHEN LESS THAN 2.0 MCG/ML (10.0-30.0); ALKALINE PHOSPHATASE 36 U/L (45-117); TOTAL BILIRUBIN ADULT 0.2 MG/DL (0.2-1.0); TOTAL PROTEIN 6.3 GM/DL (6.4-8.2)
[2017-08-15 06:01] VITALS: BP 114/62; PULSE 84; RESP 18; O2SAT 98
[2017-08-15 07:31] VITALS: BP 90/55; PULSE 90; RESP 18; O2SAT 96
[2017-08-15 09:00] VITALS: BP 128/58; PULSE 82; RESP 18; TEMP 99; O2SAT 99
[2017-08-15] MEDS ORDERED: CLON1TAB PO (13:36)
[2017-08-15] MEDS ORDERED: TRAZ100T10 PO (13:36)
[2017-08-15] MEDS ORDERED: BUPR150XL PO (13:36)
[2017-08-15] MEDS ORDERED: TRIL600T PO (13:36)
[2017-08-15] MEDS ORDERED: diphenhydrAMINE HCL 50 MG CAP PO PRN (14:45)
[2017-08-15] MEDS ORDERED: LORazepam 2 MG/ML VIAL IV PUSH PRN ×4 (14:45)
[2017-08-15] MEDS ORDERED: LORazepam 2 MG TAB PO PRN (14:45)
[2017-08-15] MEDS ORDERED: BENZTROPINE MESYLATE 2 MG/2 ML VIAL IM PRN (14:45)
[2017-08-15] MEDS ORDERED: ALUMINUM/MAGNESIUM/SIMETH 30 ML CUP PO PRN (14:45)
[2017-08-15] MEDS ORDERED: MAGNESIUM HYDROXIDE SUSP 30 ML CUP PO PRN (14:45)
[2017-08-15] MEDS ORDERED: BENZTROPINE MESYLATE 1 MG TAB PO PRN (14:45)
[2017-08-15] MEDS ORDERED: ACETAMINOPHEN 325 MG TAB PO PRN (14:45)
[2017-08-15] MEDS ORDERED: NICOTINE 21 MG/24 HR PATCH T-DERMAL PRN (14:45)
[2017-08-15] MEDS ORDERED: FLUMAZENIL 0.5 MG/5 ML VIAL IV PUSH PRN (14:45)
--- NOTE | 2017-08-15 16:14 | PD.CONS ---
HPI Service [facility] Hospitalists Consult Requested By Psychiatry Reason for Consult Medical management Primary Care Physician Unknown Diagnoses: (1) History of substance abuse (2) Bipolar affective disorder, depressed (3) Alcohol intoxication (4) Suicidal ideation History of Present Illness Patient is a 26-year-old female with past medical history of bipolar disorder admitted to inpatient psych unit. The patient was is brought to the ED by [facility] with chief complaint of an intentional overdose. The overdose reportedly occurred approximately 11 PM. She reportedly took 20 5 mg clonidine tablets (? 0.5 mg or clonazepam) and 4 10 mg Ambien tablets in a suicidal attempt. She has also cut her right wrist. EMS was called by her fianc. She reportedly has a history of a previous suicide attempt. The hospitalist is consulted for medical management. Patient is ambulating in the hallways she appears to not acute distress. She has some small lacerations on her right wrist nonbleeding superficial she reports some pain. No fever or chills. She can move her wrist without any problems. Denies nausea vomiting no diarrhea or constipation. No chest pain, palpitations, shortness of breath. No urinary complaints. No lower extremity edema. Patient says she did not take anything an overdose and she feels good. Denies any suicidal ideation at this time. Review of Systems Except as stated in HPI: all other systems reviewed are Neg Past Family Social History Allergies: Coded Allergies: aripiprazole (Unverified Allergy, Severe, Anaphylaxis, 08/14/17) lurasidone (Unverified Allergy, Severe, Anaphylaxis, 08/14/17) promethazine (Unverified Allergy, Severe, Anaphylaxis, 08/14/17) ziprasidone (Unverified Allergy, Severe, Anaphylaxis, 08/14/17) Past Medical History Bipolar disorder Past Surgical History Right foot surgery Reported Medications Reported Meds & Active Scripts Active Reported Trileptal (Oxcarbazepine) 600 Mg Tab 600 Mg PO DAILY Wellbutrin Xl 24 HR (Bupropion HCl) 150 Mg Tab 150 Mg PO DAILY Clonazepam 1 Mg Tab 1 Mg PO BID Trazodone (Trazodone HCl) 100 Mg Tablet 100 Mg PO HS Family History Parents are healthy no medical problems Social History Denies alcohol use. Marijuana use occasionally when she gets from friends. Tobacco use used to smoke 1 pack per day now she uses vape one pack a week. Physical Exam Vital Signs Vital Signs Date Time Temp Pulse Resp B/P (MAP) Pulse Ox O2 Delivery O2 Flow Rate FiO2 08/15/17 15:34 08/15/17 09:00 99.0 82 18 128/58 (81) 99 Room Air 08/15/17 07:31 90 18 90/55 (67) 96 Room Air 08/15/17 06:01 84 18 114/62 (79) 98 Room Air 08/14/17 23:34 16 98 Nasal Cannula 2.00 08/14/17 23:29 80 98 Room Air 08/14/17 23:25 98.1 86 16 110/80 (90) 98 Physical Exam GENERAL: This is a well-nourished, well-developed patient, in no apparent distress. SKIN: No rashes, ecchymoses. Right wrist superficial lacerations, no signs of infection has full range motion of right wrist. Cool and dry. HEAD: Atraumatic. Normocephalic. No temporal or scalp tenderness. EYES: Pupils equal round and reactive. Extraocular motions intact. No scleral icterus. No injection or drainage. ENT: Nose without bleeding, purulent drainage or septal hematoma. Throat without erythema, tonsillar hypertrophy or exudate. Uvula midline. Airway patent. NECK: Trachea midline. No JVD or lymphadenopathy. Supple, nontender, no meningeal signs. CARDIOVASCULAR: Regular rate and rhythm without murmurs, gallops, or rubs. RESPIRATORY: Clear to auscultation. Breath sounds equal bilaterally. No wheezes , rales, or rhonchi. GASTROINTESTINAL: Abdomen soft, non-tender, nondistended. No hepato-splenomegaly , or palpable masses. No guarding. MUSCULOSKELETAL: Extremities without clubbing, cyanosis, or edema. No joint tenderness, effusion, or edema noted. No calf tenderness. Negative Homans sign bilaterally. NEUROLOGICAL: Awake and alert. Cranial nerves II through XII intact. Motor and sensory grossly within normal limits. Five out of 5 muscle strength in all muscle groups. Normal speech. Laboratory Laboratory Tests Test 08/14/17 23:40 08/15/17 02:45 White Blood Count 8.7 Red Blood Count 4.19 Hemoglobin 13.0 Hematocrit 37.6 Mean Corpuscular Volume 89.7 Mean Corpuscular Hemoglobin 31.1 Mean Corpuscular Hemoglobin Concent 34.7 Red Cell Distribution Width 14.1 Platelet Count 209 Mean Platelet Volume 8.1 Neutrophils (%) (Auto) 52.8 Lymphocytes (%) (Auto) 32.6 Monocytes (%) (Auto) 6.6 Eosinophils (%) (Auto) 7.1 Basophils (%) (Auto) 0.9 Neutrophils # (Auto) 4.6 Lymphocytes # (Auto) 2.8 Monocytes # (Auto) 0.6 Eosinophils # (Auto) 0.6 Basophils # (Auto) 0.1 CBC Comment DIFF FINAL Differential Comment Blood Urea Nitrogen 9 Creatinine 0.78 Random Glucose 81 Total Protein 6.3 Albumin 3.5 Calcium Level 7.8 Alkaline Phosphatase 36 Aspartate Amino Transf (AST/SGOT) 29 Alanine Aminotransferase (ALT/SGPT) 17 Total Bilirubin 0.2 Sodium Level 140 Potassium Level 4.2 Chloride Level 109 Carbon Dioxide Level 22.5 Anion Gap 9 Estimat Glomerular Filtration Rate 89 Human Chorionic Gonadotropin, Quant LESS THAN 1 Salicylates Level LESS THAN 1.7 Urine Opiates Screen NEG Acetaminophen Level LESS THAN 2.0 LESS THAN 2.0 Urine Barbiturates Screen NEG Urine Amphetamines Screen NEG Urine Benzodiazepines Screen NEG Urine Cocaine Screen NEG Urine Cannabinoids Screen NEG Ethyl Alcohol Level 199 Result Diagram: 08/14/17 2340 08/14/17 2340 Assessment and Plan Assessment and Plan 26-year-old female with Bipolar disorder Suicidal ideation Management per psychiatry Right wrist superficial laceration. No signs of infection. Full range of motion. Discussed Condition With Patient, nurse Problem Qualifiers (1) Alcohol intoxication: Qualified Codes: F10.920 - Alcohol use, unspecified with intoxication, uncomplicated Lexi Pichardo MD Aug 15, 2017 16:14
[2017-08-15] MEDS: LORazepam 1 MG TAB PO PRN ×2 (17:27→21:30)
--- NOTE | 2017-08-15 22:57 | EKG ---
Date Performed: 08/14/2017 Time Performed: 23:27:32 PTAGE: 26 years EKG: Sinus rhythm NORMAL ECG NO PREVIOUS TRACING DOCTOR: Italo Ge Interpretating Date/Time 08/15/2017 22:51:13
[2017-08-16 05:36] VITALS: BP 119/83; PULSE 78; RESP 18; TEMP 97.6; O2SAT 100
[2017-08-16] MEDS ORDERED: REMOVE OLD NICOTINE PATCH T-DERMAL SCH (09:00)
[2017-08-16] MEDS ORDERED: OXcarbazepine 600 MG TAB PO SCH (09:00)
--- NOTE | 2017-08-16 09:16 | PD.TTN ---
Patient Problems 1. Discharge planning 2. Medication compliance 3. Knowledge deficit 4. Lack of coping skills Progress Toward Goals Provider Present: Dr. Jenny Vazquez Provider Input: 08/16/2017: patient is a new admission and will be assess for treatment and medication management Nurse(s) Present: JOLEEN Weinsteinfront counter clerk Counselors Present: BREANNA Mckeon Psych Therapist Input: 08/16/2017: Patient will be assess for service, counselor has been asked by treating pscyhiatrist to contact family Group Spec/RT/OT/DE LA GARZA Present: Jalil Owen OT Group Spec/RT/OT/DE LA GARZA Input: 08/16/2017: New patient, who will be given schedule and group activities information Documentation Scribe: BREANNA Mckeon Sandra LMHC Aug 16, 2017 09:16
[2017-08-16 09:22] LABS: CALCIUM 9.1 MG/DL (8.5-10.1)
[2017-08-16 09:26] LABS: CHOLESTEROL 161 MG/DL (120-200); TRIGLYCERIDES 214 MG/DL (42-150)
[2017-08-16 09:39] LABS: CHOLESTEROL/ HDL RATIO 4.37 RATIO; HDL CHOLESTEROL 36.8 MG/DL (40.0-60.0); LDL CHOLESTEROL 81 MG/DL (0-99)
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
[2017-08-16 17:08] LABS: HEMOGLOBIN A1C 4.8 % (4.3-6.0)
== END 2017-08-16 11:45 | disposition home or self-care (01) | DRG 882 ==
LOC: NEPE 23:23 → NEDA 08-15 14:40 → H270 08-15 15:40
PROVIDERS: ADMIT Psychiatry & Neurology Psychiatry; ATTEND Psychiatry & Neurology Psychiatry
DX: F43.25 Adjustment disorder with mixed disturbance of emotions and conduct (principal); F20.9 Schizophrenia, unspecified; R45.851 Suicidal ideations; F31.9 Bipolar disorder, unspecified; F60.3 Borderline personality disorder; F10.120 Alcohol abuse with intoxication, uncomplicated; Y90.6 Blood alcohol level of 120-199 mg/100 ml; F17.290 Nicotine dependence, other tobacco product, uncomplicated; F12.90 Cannabis use, unspecified, uncomplicated; S61.511A Laceration without foreign body of right wrist, initial encounter; Z62.810 Personal history of physical and sexual abuse in childhood; F42.9 Obsessive-compulsive disorder, unspecified; F43.10 Post-traumatic stress disorder, unspecified; J45.909 Unspecified asthma, uncomplicated; E78.00 Pure hypercholesterolemia, unspecified; T42.4X2A Poisoning by benzodiazepines, intentional self-harm, initial encounter; F41.9 Anxiety disorder, unspecified; G89.29 Other chronic pain; M79.671 Pain in right foot; Z85.828 Personal history of other malignant neoplasm of skin; Z91.5 Personal history of self-harm
CPT/HCPCS: 80053; 80061; 80307; 82310; 83036; 84443; 84702; 85025; 93005; 96360; J7030; P9612; Q0163